=== PATIENT | female | born 1935 | race Caucasian/White ===

== ENCOUNTER 2016-10-16 06:29 | Day surgery (SDC) | payer MEDICARE, OTHER ==
[2016-10-16] MEDS ORDERED: CEFAZOLIN 1 GM/D5W RTU 1 GM/50 ML RTUPB IV PRN (06:47)
[2016-10-16] MEDS ORDERED: NORMAL SALINE INJ/PF 0.9% 10 ML SDV ONE (07:08)
[2016-10-16] MEDS ORDERED: BUPIVACAINE HCL 0.5 % INJ/PF 30 ML SDV ONE (07:08)
[2016-10-16] MEDS ORDERED: LIDOCAINE 2% INJ (20 MG/ML) 20 ML MDV ONE (07:08)
[2016-10-16] MEDS ORDERED: MIDAZOLAM 2 MG/2 ML INJ ONE (07:20)
[2016-10-16] MEDS ORDERED: LIDOCAINE 2% INJ-PF (20 MG/ML) 10 ML AMPUL ONE (07:21)
[2016-10-16] MEDS ORDERED: PROPOFOL INJ 200 MG/20 ML VIAL IV ONE (07:21)
[2016-10-16] MEDS ORDERED: ACETAMINOPHEN 100 ML IV ONE (07:21)
[2016-10-16] MEDS ORDERED: DEXMEDETOMIDINE INJ 80 MCG/20 ML VIAL IV ONE (07:21)
[2016-10-16] MEDS: POLYMYXIN B SULFATE INJ 500000 UNIT VIAL ONE ×2 (08:45)
[2016-10-16] MEDS: BACITRACIN INJ 50,000 UNIT VIAL ONE ×2 (08:45)
[2016-10-16] MEDS ORDERED: PHENYLEPHRINE HCL INJ/PF 10 MG/1 ML SDV ONE (09:09)
--- NOTE | 2016-10-16 10:18 | SURGICARE OPERATIVE REPORT E ---
[facility] NAME: CONRAD BOLDEN AGE: 81Y DATE OF SURGERY: ROOM: PREOPERATIVE DIAGNOSIS: Hammertoe deformity, second digit, left foot and contracted second metatarsophalangeal joint, left foot. POSTOPERATIVE DIAGNOSIS: Hammertoe deformity, second digit, left foot and contracted second metatarsophalangeal joint, left foot. OPERATION: 1. Arthroplasty at the proximal interphalangeal joint, second digit, left foot. 2. Capsulotomy with tenotomy, second metatarsophalangeal joint, left. SURGEON: REJI BOOTH DPM DEVELOPMENT OFFICER: Steve Owens DPM PROCEDURE: Following induction of IV regional local anesthesia, the left foot and leg were prepped and draped in the usual sterile manner. A pneumatic tourniquet was placed around the left ankle and inflated to 250 mmHg, after exsanguination of the limb, the Esmarch bandage. The following surgical procedures were then performed: 1. Arthroplasty at the proximal interphalangeal joint, second digit, left foot. Attention was directed to the dorsal aspect of the 2nd digit of the left foot where an approximately 2-cm dorsal linear incision was made. The incision was deepened via sharp dissection. The extensor digitorum longus tendon was sharply incised in a transverse fashion at the proximal interphalangeal joint. The proximal portion of the tendon was reflected proximally from the bone. The hypertrophied head of the proximal phalanx was then freed from all soft tissue attachments via sharp dissection. Utilizing a Bindu bone cutting forceps, the hypertrophied head of the proximal was osteotomized perpendicular to the long axis of the bone and removed in toto from the wound. The proximal phalanx was then rasped smooth utilizing a handheld horizontal rasp. The attention was directed to the plantar aspect of the wound. Via sharp dissection, the plantar plate was sharply incised and removed in toto from the wound. The flexor digitorum longus tendon was identified and clamped proximally and distally and sharply incised distally. The tendon was then split longitudinally. The medial and lateral aspects of the tendon were then sutured on the dorsal aspect of the proximal phalanx utilizing simple interrupted sutures of 3-0 FiberWire. The area was then flushed with copious amounts of an antibacterial saline solution. The extensor digitorum longus tendon was then coapted and maintained utilizing simple interrupted sutures of 3-0 Vicryl. The skin was then coapted and maintained utilizing horizontal mattress sutures of 5-0 nylon. 2. Capsulotomy with tenotomy, second metatarsophalangeal joint, left foot. Attention was directed to the second metatarsophalangeal joint of the left foot where an approximately 1-cm dorsal linear incision was made. The incision was deepened via sharp dissection. The extensor digitorum longus tendon was identified, isolated and sharply incised. The capsule was then identified and via sharp dissection, a dorsal capsulotomy was then performed. This then allowed the digit, the proximal phalanx to take on a more anatomically correct position. An x-ray was taken to ensure that the digit was now in a more anatomically correct position and was no longer sitting dorsally contracted. The area was then flushed with copious amounts of an antibacterial saline solution. The subcutaneous tissue was then coapted and maintained utilizing simple interrupted sutures of 4-0 Vicryl and the skin was coapted and maintained utilizing horizontal mattress sutures of 5-0 nylon. The foot was then cleansed utilizing alcohol foam. A dry, sterile dressing was then applied, consisting of Saad silk, 4 x 4s, Conform, Kerlix and Coban. The pneumatic tourniquet was released. It was noted all digits were warm and viable and the patient was transferred to the recovery room. DICTATING PHYSICIAN: REJI BOOTH D.P.M. [id number] PHY#: [id number] ID: [id number] JOB#: [id number] ACCT: [id number] cc:LOKESH MANCIA
--- NOTE | 2016-10-16 10:58 | SURGICARE DISCHARGE SUMMARY E ---
[facility] Discharge Summary NAME: CONRAD BOLDEN AGE: 81Y ADMITTED: 10/16/2016 DISCHARGED: 10/17/2016 SURGICAL PROCEDURE: 1. Arthroplasty at the proximal interphalangeal joint, second digit, left foot. 2. Capsulotomy with tenotomy, second metatarsal phalangeal joint, left foot. POSTOPERATIVE DIAGNOSES: 1. Hammertoe deformity, second digit, left foot. 2. Contracted second metatarsal phalangeal joint, left foot. SURGEON: Randi Johnson DPM ASSOCIATE PROFESSOR OF SURGERY: Steve Owens DPM SUMMARY: The patient was admitted to [facility] with a chief complaint of a painful toe on her left foot. She stated that it sticks up in her shoe and was also pressing down and causing callus to reform underneath her foot. The patient desired to have this problem surgically corrected. She underwent the above surgical procedures without any complication and was transferred to the recovery room. She was discharged with a an ice pack. Postoperative instructions and postoperative prescription for Cephalexin 500 mg #4; Percocet 5/325 mg #40; and Phenergan 25 mg #20. She was given a follow-up appointment in the doctor's office in 1 week and the patient was discharged from [facility]. DICTATING PHYSICIAN: RANDI JOHNSON D.P.M. [id number] PHY#: [id number] ID: [id number] JOB#: [id number] ACCT: [id number] cc:RANDI JOHNSON DPM >
[2016-10-16] MEDS ORDERED: EPHEDRINE SULFATE INJ 50 MG/1 ML AMPULE ONE (13:14)
== END 2016-10-16 11:44 | disposition home or self-care (01) ==
LOC: SC 06:29
PROVIDERS: ATTEND Podiatrist Foot Surgery
PROC: 0SNN0ZZ Release Left Metatarsal-Phalangeal Joint, Open Approach (ICD-10-PCS; 2016-10-16)
PROC: 0SQQ0ZZ Repair Left Toe Phalangeal Joint, Open Approach (ICD-10-PCS; principal; 2016-10-16 07:30)
DX: M20.42 Other hammer toe(s) (acquired), left foot (principal); M24.575 Contracture, left foot; I10 Essential (primary) hypertension; F17.210 Nicotine dependence, cigarettes, uncomplicated; Z88.2 Allergy status to sulfonamides; Z95.0 Presence of cardiac pacemaker
CPT/HCPCS: 73620; 28285; 28270; J2250; J3490 ×7; J0690; J2370; J2704; J0131; 01480